=== PATIENT | female | born 1965 | race Caucasian/White ===

== ENCOUNTER 2020-05-27 09:02 | Day surgery (SDC) | payer BC, OTHER ==
[~2020-05-27 09:02] MED LIST: Lactated Ringers 1,000 ML IV SCH; Sodium Chloride 0.9% 10 ML SDV IV PRN; Sodium Chloride 0.9% 10 ML Syringe FLUSH PRN; Sodium Chloride 0.9% 2.5 ML Syringe FLUSH PRN
--- NOTE | 2020-05-27 09:40 | PCM.PREANE ---
Preanesthetic Assessment - Anesthesia/Transfusion/Family Hx Anesthesia History: Prior Anesthesia Without Reaction Family History of Anesthesia Reaction: No Transfusion History: No Prior Transfusion(s) - Review of Systems General: No Symptoms Pulmonary: No Symptoms Cardiovascular: No Symptoms Gastrointestinal: No Symptoms Neurological: No Symptoms Other: Reports: None - Physical Assessment NPO Status Date: 05/26/20 Height: 5 ft 10 in Weight: 114.759 kg ASA Class: 2 Mental Status: Alert & Oriented x3 Airway Class: Mallampati = 2 Dentition: Reports: Normal Dentition ROM/Head Extension: Full Lungs: Clear to Auscultation, Normal Respiratory Effort Cardiovascular: Regular Rate, Regular Rhythm - Lab Values: Laboratory Last Values Urine HCG, Qual NEGATIVE (NEGATIVE) 05/27/20 09:10 - Allergies Allergies/Adverse Reactions: Allergies Allergy/AdvReac Type Severity Reaction Status Date / Time bee venom protein (honey bee) Allergy Anaphylactic Verified 05/21/20 12:16 Shock wasp bites Allergy Anaphylactic Uncoded 05/21/20 12:16 Shock - Blood Blood Available: No - Anesthesia Plan Pre-Op Medication Ordered: None - Acknowledgements Anesthesia Type Planned: General Anesthesia Pt an Appropriate Candidate for the Planned Anesthesia: Yes Alternatives and Risks of Anesthesia Discussed w Pt/Guardian: Yes Pt/Guardian Understands and Agrees with Anesthesia Plan: Yes Additional Comments: PMH: dm2, am glucose = 118 PLAN: tiva PreAnesthesia Questionnaire HEENT History: Reports: Other (See Below) Other HEENT History: wears glasses/ contacts Cardiovascular History: Reports: Hypertension 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: 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 History: Reports: Fracture Other 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 History: hx of fx clavicle as a child Psychiatric History: Reports: Depression Endocrine/Metabolic History: Reports: Diabetes, Type II, Obesity/BMI 30+ - Past Surgical History Head Surgeries/Procedures: Reports: None HEENT Surgical History: Reports: Oral Surgery Other HEENT Surgeries/Procedures: has 2 upper left dental implants Cardiovascular Surgical History: Reports: Varicose Other Cardiovascular Surgeries/Procedures: ablation and phlebotomy of right lower leg varicose vein Female Surgical History: Reports: Section, Tubal Ligation - SUBSTANCE USE Smoking Status *Q: Former Smoker Tobacco Use Within Last Twelve Months: No Recreational Drug Use History: No - HOME MEDS Home Medications: Home Meds EPINEPHrine [Epinephrine] 0.3 mg IM ASDIRECTED PRN 05/21/20 [History] Furosemide [Lasix] 20 mg PO DAILY 05/21/20 [History] Linagliptin [Tradjenta] 5 mg PO QAM 05/21/20 [History] Sertraline HCl [Zoloft] 100 mg PO DAILY 05/21/20 [History] lisinopriL [Lisinopril] 10 mg PO DAILY 05/21/20 [History] metFORMIN HCl [Metformin ER Osmotic] 1,000 mg PO Q12H 05/21/20 [History] - CURRENT (IN HOUSE) MEDS Current Meds: Current Medications Lactated Ringer's (Ringers, Lactated) 1,000 mls @ 125 mls/hr IV ASDIRECTED FANI Sodium Chloride (Saline Flush) 10 ml FLUSH ASDIRECTED PRN PRN Reason: Keep Vein Open Sodium Chloride (Saline Flush) 2.5 ml FLUSH ASDIRECTED PRN PRN Reason: Keep Vein Open Sodium Chloride (Saline Flush) 10 ml FLUSH ASDIRECTED PRN PRN Reason: Keep Vein Open Sodium Chloride (Saline Flush) 2.5 ml FLUSH ASDIRECTED PRN PRN Reason: Keep Vein Open Sodium Chloride (Normal Saline) 10 ml IV ASDIRECTED PRN PRN Reason: IV Use
[2020-05-27] MEDS ORDERED: fentaNYL 100 MCG/2 ML SDV ONE ×2 (09:54→11:56)
[2020-05-27] MEDS ORDERED: Midazolam 1 MG/ML 2 ML SDV ONE (09:54)
[2020-05-27] MEDS ORDERED: Propofol 200 MG/20 ML SDV ONE ×4 (09:54→12:01)
[2020-05-27] MEDS ORDERED: Lidocaine 2% 5 ML SDV ONE (09:54)
[2020-05-27] MEDS ORDERED: Glycopyrrolate 0.2 MG/ML SDV ONE (11:26)
[2020-05-27] MEDS ORDERED: cefOXitin 1 GM Vial ONE (11:49)
--- NOTE | 2020-05-27 12:32 | PCM.OPNOTE ---
- General Post-Op/Procedure Note Date of Surgery/Procedure: 05/27/20 Operative Procedure(s): Diagnostic EGD and colonoscopy Findings: Mild gastritis in the antrum of the stomach. Small sessile rectal polyp. Large irregular appearing polyp on a narrow stalk @ 20 cm in the sigmoid colon. Clip applied across stalk Pre Op Diagnosis: Positive FOBT Post-Op Diagnosis: Mild gastritis, sigmoid colon polyp, rectal polyp Anesthesia Technique: MAC Primary Surgeon: Sienna Singer Condition: Good
--- NOTE | 2020-05-27 12:55 | PCM.POSTAN ---
POST ANESTHESIA ASSESSMENT - MENTAL STATUS Mental Status: Alert - VITAL SIGNS Vital Signs: Last Vital Signs Temp 37.0 C 05/27/20 12:23 Pulse 73 05/27/20 12:51 Resp 15 05/27/20 12:51 BP 131/73 05/27/20 12:51 Pulse Ox 98 05/27/20 12:51 - RESPIRATORY Respiratory Status: Respiratory Rate WNL - CARDIOVASCULAR CV Status: Pulse Rate WNL - GASTROINTESTINAL GI Status: No Symptoms - POST OP HYDRATION Hydration Status: Adequate & Stable
--- NOTE | 2020-05-27 14:14 | PCM48HPAN ---
Post Anesthesia Note - EVALUATION WITHIN 48HRS OF ANESTHETIC Vital Signs in Normal Range: Yes Patient Participated in Evaluation: Yes Respiratory Function Stable: Yes Airway Patent: Yes Cardiovascular Function Stable: Yes Hydration Status Stable: Yes Pain Control Satisfactory: Yes Nausea and Vomiting Control Satisfactory: Yes Mental Status Recovered: Yes Vital Signs: Last Vital Signs Temp 98.6 F 05/27/20 12:23 Pulse 73 05/27/20 12:51 Resp 15 05/27/20 12:51 BP 131/73 05/27/20 12:51 Pulse Ox 98 05/27/20 12:51
--- NOTE | 2020-05-27 18:56 | OR ---
SURGEON: SIENNA SINGER MD DATE OF PROCEDURE: 05/27/2020 PREOPERATIVE DIAGNOSIS: Positive fecal occult blood test. POSTOPERATIVE DIAGNOSES: 1. Gastritis. 2. Rectal polyp. 3. Large sigmoid colon polyp at 20 cm. PROCEDURES PERFORMED: Diagnostic esophagogastroduodenoscopy and colonoscopy. PRIMARY SURGEON: Sienna Singer MD ANESTHESIA: MAC. INSTRUMENT USED: Olympus endoscope and colonoscope. EXTENT OF EXAM: To the second portion of duodenum, to the cecum. PREPARATION: Good. LIMITATIONS: None. INDICATIONS FOR EXAMINATION: The patient is a 54-year-old female who underwent a recent fecal occult blood test which was positive. The patient and I discussed the need for diagnostic EGD and colonoscopy. I explained the expected perioperative course, the procedures, as well as the risks. She verbalized understanding and wishes to proceed. PROCEDURE IN DETAIL: The patient was brought into the endoscopy suite and placed in the left lateral decubitus position. A time-out was completed verifying the patient's name, age, date of , allergies, and procedure to be performed. A bite block was placed in the patient's mouth. Monitored anesthesia care was induced and continuous oxygen was provided via nasal cannula throughout the procedure. After adequate sedation was achieved, a well-lubricated endoscope was placed in the patient's mouth and advanced under direct visualization to the second portion of duodenum. This appeared normal and a photograph was taken. The scope was then fully withdrawn while examining the color, texture, anatomy, and integrity of the mucosa of the upper GI tract. The patient's duodenum appeared normal. The scope was brought into the stomach and a photograph was taken of the pylorus as well as EG junction. Both appeared anatomically normal. The patient had a small amount of mild inflammation along the antrum. A biopsy was taken of the antrum, body, and fundus and sent for histologic review and H. pylori testing. The scope was then brought in the distal esophagus and a photograph was taken of the Z-line. This appeared normal and a photograph was taken. The remainder of the esophageal mucosa appeared normal. The scope was removed and this portion of procedure terminated. A digital rectal exam was performed. This exam was within normal limits. A well-lubricated colonoscope was inserted in the rectum and advanced under direct visualization to the level of the cecum. The cecum was identified by both visual and anatomic landmarks. A photograph was taken of the cecal cap as well as with the scope retroflexed within the cecum. The scope was then fully withdrawn while examining the color, texture, anatomy, and integrity of the mucosa from the cecum to the anal canal. The patient was found to have a very large pedunculated polyp within the sigmoid colon at 20 cm. This was on a narrow stalk. Using a hot snare, I was able to cauterize through most of the stalk. The patient had a large vessel that appeared to be going into the polyp. This was ligated with a Ligaclip, and then using a hot snare, I transected across the top of the vessel. The polyp was retrieved using an Endo Net. It was sent to pathology, labeled as sigmoid colon polyp. The area where the colon polyp was removed was inked at the base of the stalk as well as on the opposite side of the stalk with 1 mL of injectable dye. The scope was then brought into the rectum and a small sessile polyp was noted there. It was removed in piecemeal fashion using cold biopsy forceps. The scope was retroflexed, and I visualized the anal canal. This appeared grossly normal. The scope was straightened out and fully withdrawn. The cecum to anus time was 54 minutes. The patient tolerated the procedure well and was transferred to the PACU in stable condition. ENDOSCOPIC DIAGNOSES: 1. Gastritis. 2. Rectal polyp. 3. Large sigmoid colon polyp at 20 cm. RECOMMENDATIONS: We will follow up with the patient in clinic in 2 weeks. She was made aware of the larger polyp in her sigmoid colon in PACU and that she was to return should she develop any abdominal pain or bloody diarrhea. BRITNI GARCIA /[id number]
== END 2020-05-27 13:40 | disposition home or self-care (01) ==
LOC: MW.SDS 09:02
PROVIDERS: ATTEND Surgery
DX: D12.5 Benign neoplasm of sigmoid colon (principal); K62.1 Rectal polyp; K29.50 Unspecified chronic gastritis without bleeding; I10 Essential (primary) hypertension; E11.9 Type 2 diabetes mellitus without complications; E66.9 Obesity, unspecified; Z87.891 Personal history of nicotine dependence; Z91.030 Bee allergy status; Z79.84 Long term (current) use of oral hypoglycemic drugs; Z79.899 Other long term (current) drug therapy; Z68.37 Body mass index [BMI] 37.0-37.9, adult
CPT/HCPCS: 81025; J0694; J2001; J2250; J2704; J3010; J3490; J7120

== ENCOUNTER 2020-09-19 13:29 | Emergency (ER) | payer OTHER, BC ==
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
== END 2020-09-19 14:14 | disposition home or self-care (01) ==
LOC: MW.ED 13:29
DX: S13.4XXA Sprain of ligaments of cervical spine, initial encounter (principal); S59.902A Unspecified injury of left elbow, initial encounter; I10 Essential (primary) hypertension; F32.9 Major depressive disorder, single episode, unspecified; E11.9 Type 2 diabetes mellitus without complications; E66.9 Obesity, unspecified; Z68.36 Body mass index [BMI] 36.0-36.9, adult; Z91.030 Bee allergy status; Z91.038 Other insect allergy status; Z79.899 Other long term (current) drug therapy; V49.69XA Unspecified car occupant injured in collision with other motor vehicles in traffic accident, initial encounter
CPT/HCPCS: 99283

== ENCOUNTER 2021-06-08 06:52 | Day surgery (SDC) | payer BC, OTHER ==
[2021-06-08] MEDS ORDERED: Dexamethasone 4 MG/ML 5 ML MDV ONE (07:28)
[2021-06-08] MEDS ORDERED: Propofol 200 MG/20 ML SDV ONE (07:29)
--- NOTE | 2021-06-08 07:55 | PCM.PREANE ---
Preanesthetic Assessment - Procedure Proposed Procedure: Colonoscopy - Anesthesia/Transfusion/Family Hx Anesthesia History: Prior Anesthesia Without Reaction Family History of Anesthesia Reaction: No Transfusion History: No Prior Transfusion(s) - Review of Systems General: No Symptoms Pulmonary: No Symptoms (Remote smoking Hx (Quit x 29 yrs)) Cardiovascular: No Symptoms (HTN, controlled) Gastrointestinal: No Symptoms Neurological: No Symptoms Other: Reports: None (AODM on metformin and Ozempic) - Physical Assessment NPO Status Date: 06/06/21 NPO Status Time: 18:00 Vital Signs: Last Vital Signs Temp 97.9 F 06/08/21 07:00 Pulse 79 06/08/21 07:00 Resp 16 06/08/21 07:00 BP 139/79 06/08/21 07:00 Pulse Ox 99 06/08/21 07:00 Height: 5 ft 10 in Weight: 113.852 kg (obesity) ASA Class: 2 Mental Status: Alert & Oriented x3 Airway Class: Mallampati = 2 Dentition: Reports: Normal Dentition Thyro-Mental Finger Breadths: 3 Mouth Opening Finger Breadths: 3 ROM/Head Extension: Full Lungs: Clear to Auscultation, Normal Respiratory Effort Cardiovascular: Regular Rate, Regular Rhythm - Allergies Allergies/Adverse Reactions: Allergies Allergy/AdvReac Type Severity Reaction Status Date / Time bee venom protein (honey bee) Allergy Anaphylactic Verified 06/03/21 10:59 Shock wasp bites Allergy Anaphylactic Uncoded 06/03/21 10:59 Shock - Acknowledgements Anesthesia Type Planned: General Anesthesia Pt an Appropriate Candidate for the Planned Anesthesia: Yes Alternatives and Risks of Anesthesia Discussed w Pt/Guardian: Yes Pt/Guardian Understands and Agrees with Anesthesia Plan: Yes PreAnesthesia Questionnaire HEENT History: Reports: Other (See Below) Other HEENT History: wears glasses/contacts Cardiovascular History: Reports: Hypertension Respiratory History: Reports: None Gastrointestinal History: Reports: Colon Polyp Genitourinary History: Reports: None 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 History: Reports: Fracture Other 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 History: hx of fx right clavicle as a child Neurological History: Reports: None Psychiatric History: Reports: Depression Endocrine/Metabolic History: Reports: Diabetes, Type II, Obesity/BMI 30+ Hematologic History: Reports: None Immunologic History: Reports: None Oncologic (Cancer) History: Reports: None Dermatologic History: Reports: None - Infectious Disease History Infectious Disease History: Reports: Chicken Pox - Past Surgical History Head Surgeries/Procedures: Reports: None HEENT Surgical History: Reports: Oral Surgery Other HEENT Surgeries/Procedures: has 2 upper left dental implants Cardiovascular Surgical History: Reports: Varicose Other Cardiovascular Surgeries/Procedures: ablation procedure of greater Saphenous vein Respiratory Surgical History: Reports: None GI Surgical History: Reports: Colonoscopy Female Surgical History: Reports: Section, Tubal Ligation Endocrine Surgical History: Reports: None Neurological Surgical History: Reports: None Oncologic Surgical History: Reports: None Dermatological Surgical History: Reports: None - SUBSTANCE USE Tobacco Use Status *Q: Former Tobacco User Tobacco Use Within Last Twelve Months: No Recreational Drug Use History: No - HOME MEDS Home Medications: Home Meds EPINEPHrine [Epinephrine] 0.3 mg IM ASDIRECTED PRN 05/21/20 [History] Linagliptin [Tradjenta] 5 mg PO QAM 05/21/20 [History] Sertraline HCl [Zoloft] 100 mg PO DAILY 05/21/20 [History] lisinopriL [Lisinopril] 10 mg PO DAILY 05/21/20 [History] metFORMIN HCl [Metformin ER Osmotic] 1,000 mg PO Q12H 05/21/20 [History] Semaglutide [Ozempic] 0.5 mg SQ WEEKLY 06/03/21 [History] - CURRENT (IN HOUSE) MEDS Current Meds: Current Medications Lactated Ringer's (Ringers, Lactated) 1,000 mls @ 125 mls/hr IV ASDIRECTED FANI Last Admin: 06/08/21 07:13 Dose: 125 mls/hr Documented by: Sodium Chloride (Sodium Chloride 0.9% 10 Ml Syringe) 10 ml FLUSH ASDIRECTED PRN PRN Reason: Keep Vein Open Sodium Chloride (Sodium Chloride 0.9% 2.5 Ml Syringe) 2.5 ml FLUSH ASDIRECTED PRN PRN Reason: Keep Vein Open Sodium Chloride (Sodium Chloride 0.9% 10 Ml Syringe) 10 ml FLUSH ASDIRECTED PRN PRN Reason: Keep Vein Open Sodium Chloride (Sodium Chloride 0.9% 2.5 Ml Syringe) 2.5 ml FLUSH ASDIRECTED PRN PRN Reason: Keep Vein Open Sodium Chloride (Sodium Chloride 0.9% 10 Ml Sdv) 10 ml IV ASDIRECTED PRN PRN Reason: IV Use Discontinued Medications Dexamethasone (Dexamethasone 4 Mg/Ml 5 Ml Mdv) Confirm Administered Dose 20 mg .ROUTE .STK-MED ONE Stop: 06/08/21 07:29 Lidocaine HCl (Lidocaine 1% 5 Ml Sdv) Confirm Administered Dose 5 ml .ROUTE .STK-MED ONE Stop: 06/08/21 07:31 Propofol (Propofol 200 Mg/20 Ml Sdv) Confirm Administered Dose 400 mg .ROUTE .STK-MED ONE Stop: 06/08/21 07:30
--- NOTE | 2021-06-08 08:37 | PCM.POSTAN ---
POST ANESTHESIA ASSESSMENT - MENTAL STATUS Mental Status: Alert - VITAL SIGNS Vital Signs: Last Vital Signs Temp 96.8 F L 06/08/21 08:31 Pulse 72 06/08/21 08:31 Resp 18 06/08/21 08:31 BP 121/72 06/08/21 08:31 Pulse Ox 95 06/08/21 08:31 - RESPIRATORY Respiratory Status: Respiratory Rate WNL, Airway Patent - CARDIOVASCULAR CV Status: Pulse Rate WNL, Blood Pressure Stable - GASTROINTESTINAL GI Status: No Symptoms - PAIN Pain Score: 0 - POST OP HYDRATION Hydration Status: Adequate & Stable
--- NOTE | 2021-06-08 08:40 | PCM48HPAN ---
Post Anesthesia Note - EVALUATION WITHIN 48HRS OF ANESTHETIC Vital Signs in Normal Range: Yes Patient Participated in Evaluation: Yes Respiratory Function Stable: Yes Airway Patent: Yes Cardiovascular Function Stable: Yes Hydration Status Stable: Yes Pain Control Satisfactory: Yes Nausea and Vomiting Control Satisfactory: Yes Mental Status Recovered: Yes Vital Signs: Last Vital Signs Temp 96.8 F L 06/08/21 08:31 Pulse 68 06/08/21 08:36 Resp 12 06/08/21 08:36 BP 124/68 06/08/21 08:36 Pulse Ox 96 06/08/21 08:36 - COMMENTS/OBSERVATIONS Free Text/Narrative:: Pt doing well post-op. VSS. No apparent anesthetic complications. Dr. Alfonzo Elizabeth
[2021-06-08] MEDS ORDERED: Lidocaine 2% 5 ML SDV ONE (09:09)
--- NOTE | 2021-06-08 09:36 | PCM.OPNOTE ---
- General Post-Op/Procedure Note Date of Surgery/Procedure: 06/08/21 Operative Procedure(s): Diagnostic colonoscopy Findings: sigmoid colon polyp x 3, transverse colon polyp x 1, descending colon polyp x 1 Pre Op Diagnosis: History of colon polyps Post-Op Diagnosis: sigmoid colon polyp x 3, transverse colon polyp x 1, descending colon polyp x 1 Anesthesia Technique: MAC Primary Surgeon: Sienna Singer Condition: Stable Free Text/Narrative:: Intake & Output 06/07/21 06/08/21 06/08/21 22:59 06:59 14:59 Intake Total 1025 Balance 1025
--- NOTE | 2021-06-09 16:31 | OR ---
SURGEON: SIENNA SINGER MD DATE OF PROCEDURE: 06/08/2021 PREOPERATIVE DIAGNOSIS: History of colon polyps. POSTOPERATIVE DIAGNOSES: 1. Transverse colon polyp. 2. Descending colon polyp. 3. Sigmoid colon polyps x3. PROCEDURE PERFORMED: Diagnostic colonoscopy with polypectomy. PRIMARY SURGEON: Sienna Singer MD ANESTHESIA: MAC. INSTRUMENT USED: Olympus colonoscope. EXTENT OF EXAM: To the cecum. PREPARATION: Good. LIMITATIONS: None. INDICATIONS FOR EXAMINATION: The patient is a 55-year-old female who one year ago underwent a resection of a large pedunculated polyp within her sigmoid colon. She is here for her one year followup. I explained the procedure, expected perioperative course, and the risks. She verbalized understanding and wishes to proceed. PROCEDURE IN DETAIL: The patient was brought in to the endoscopy suite and placed in the left lateral decubitus position. A time-out was completed verifying the patient's name, age, date of , allergies, and procedure to be performed. Monitored anesthesia care was induced and continuous oxygen was provided via nasal cannula throughout the procedure. After adequate sedation was achieved, a digital rectal exam was performed. This exam was within normal limits. A well-lubricated colonoscope was inserted in the rectum and advanced under direct visualization to the level of the cecum. The cecum was identified by both visual and anatomic landmarks. A photograph was taken of the cecal cap as well as with the scope retroflexed within the cecum. The scope was then fully withdrawn while examining the color, texture, anatomy, and integrity of the mucosa from the cecum to the anal canal. The patient was noted to have small sessile polyps in the colon. There was one in the transverse colon, one in the descending colon, and three within the sigmoid colon. These were all small and sessile in nature. They were all removed using a cold biopsy forceps. I noted the area of her previous polyp resection. I could see the ink within the colon. There was no evidence of recurrence. A photograph was taken. The scope was then brought into the rectum and retroflexed to allow visualization of the anal canal opening. This appeared normal and a photograph was taken. The scope was then straightened out and fully withdrawn. The cecum to anus time was over 6 minutes. The patient tolerated the procedure well and was transferred to the PACU in stable condition. ENDOSCOPIC DIAGNOSES: 1. Transverse colon polyp. 2. Descending colon polyp. 3. Sigmoid colon polyps x3. RECOMMENDATION: Follow up in clinic in two weeks. BRITNI GARCIA /[id number]
== END 2021-06-08 09:15 | disposition home or self-care (01) ==
LOC: MW.SDS 06:52
PROVIDERS: ATTEND Surgery
DX: Z12.11 Encounter for screening for malignant neoplasm of colon (principal); K63.5 Polyp of colon; E11.9 Type 2 diabetes mellitus without complications; I10 Essential (primary) hypertension; E66.9 Obesity, unspecified; Z91.030 Bee allergy status; Z91.038 Other insect allergy status; Z79.899 Other long term (current) drug therapy; Z79.84 Long term (current) use of oral hypoglycemic drugs; Z98.890 Other specified postprocedural states; Z87.891 Personal history of nicotine dependence; Z68.36 Body mass index [BMI] 36.0-36.9, adult
CPT/HCPCS: 45380; 88305; J1100; J2704; J7120; 00811